=== PATIENT | male | born 1950 | race Caucasian/White ===

== ENCOUNTER → 2024-05-21 13:16 | Outpatient (REF) | payer BC, SELFPAY | LOC: MRI 13:16 | PROVIDERS: ATTENDING PHYSICIAN Orthopaedic Surgery Orthopaedic Surgery of the Spine; FAMILY PHYSICIAN Family Medicine | DX: M48.062 Spinal stenosis, lumbar region with neurogenic claudication (principal) | CPT/HCPCS: 72158; 76014; 76015; A9575 ==